=== PATIENT | male | born 1975 | race Hispanic/Latino ===

== ENCOUNTER 2020-06-15 08:46 | Emergency (ER) | payer OTHER ==
[2020-06-15] MEDS ORDERED: LIDOCAINE HCL 1% 20 ML VIAL ONE (09:17)
== END 2020-06-15 09:40 | disposition home or self-care (01) ==
LOC: EDH 08:46
DX: L02.214 Cutaneous abscess of groin (principal); E11.9 Type 2 diabetes mellitus without complications; I10 Essential (primary) hypertension
CPT/HCPCS: 10061; 87070; 87076; 87077; 87186